=== PATIENT | female | born 2000 | race Caucasian/White ===

== ENCOUNTER 2024-08-13 19:21 | Inpatient (IN) ==
[2024-08-13] MEDS: ALBUTEROL SULFATE 2.5 MG/3 ML NEBULIZER ONE (19:35)
[2024-08-13] MEDS: IPRATROPIUM/ALBUTEROL 3 ML AMPUL.NEB NEB ONE (19:35)
[2024-08-13] MEDS: ALBUTEROL SULFATE 2.5 MG/3 ML NEBULIZER NEB ONE ×2 (19:35→21:26)
[2024-08-13] MEDS: MAGNESIUM SULFATE 2 GM/50 ML BAG IV ONE (19:43)
[2024-08-13 20:44] LABS: Basophils # (Auto) 0.05 K/mcL (0.00-0.30); Basophils % (Auto) 0.3 % (0.0-2.0); Eosinophils # (Auto) 1.73 K/mcL (0.00-0.70); Eosinophils % (Auto) 10.2 % (0.0-7.0); Hematocrit 45.1 % (34.1-44.9); Hemoglobin 14.9 g/dL (11.2-15.7); Lymphocytes # (Auto) 2.45 K/mcL (1.50-4.80); Lymphocytes % (Auto) 14.5 % (15.5-49.0); Mean Cell Volume 87.4 fL (80.0-100.0); Mean Platelet Volume 10.8 fL (8.8-12.5); Monocytes # (Auto) 0.63 K/mcL (0.10-0.90); Monocytes % (Auto) 3.7 % (1.0-12.0); Neutrophils % (Auto) 71.2 % (38.0-78.0); Platelet Count 260 K/mcL (140-440); RBC 5.16 M/mcL (3.59-5.38); Red Cell Distribution Width 12.8 % (11.5-14.5); WBC 16.9 K/mcL (4.5-11.0)
[2024-08-13 20:49] LABS: proBNP 80.5 pg/mL (<125.0)
[2024-08-13 20:52] LABS: Blood Urea Nitrogen 10 mg/dL (6-20); Calcium 9.2 mg/dL (8.6-10.4); Carbon Dioxide 24 mmol/L (22-30); Chloride 102 mmol/L (96-108); Glomerular Filtration Rate 122; Glucose 100 mg/dL (70-105); Sodium 141 mmol/L (133-145)
[2024-08-13] MEDS: LORazepam 2 MG/ML VIAL IV ONE (22:46)
[2024-08-13] MEDS ORDERED: guaiFENesin 600 MG TAB.SR.12H PO PRN (23:31)
[2024-08-13] MEDS ORDERED: SENNOSIDES 1 TABLET PO PRN (23:31)
[2024-08-13] MEDS ORDERED: LACTULOSE 20 GM/30 ML ORAL.SOL PO PRN (23:31)
[2024-08-13] MEDS ORDERED: ACETAMINOPHEN 325 MG TABLET PO PRN (23:31)
[2024-08-13] MEDS: NICOTINE 21 MG PATCH TOPICAL SCH (23:42)
[2024-08-13] MEDS: IPRATROPIUM/ALBUTEROL 3 ML AMPUL.NEB NEB SCH (23:50)
[2024-08-14] MEDS: methylPREDNISolone SOD SUCC 125 MG/2 ML VIAL IV SCH (00:02)
[2024-08-14] MEDS: NICOTINE 21 MG PATCH ONE (00:24)
[2024-08-14] MEDS: methylPREDNISolone SOD SUCC 125 MG/2 ML VIAL ONE ×2 (00:24→06:39)
[2024-08-14] MEDS: IPRATROPIUM/ALBUTEROL 3 ML AMPUL.NEB NEB ONE ×4 (00:24→06:39)
[2024-08-14] MEDS ORDERED: ALBUTEROL SULFATE 2.5 MG/3 ML NEBULIZER INH PRN (00:49)
[2024-08-14] MEDS ORDERED: ALBUTEROL SULFATE 60 PUFF INHALER INH PRN (00:49)
[2024-08-14] MEDS: ALBUTEROL SULFATE 2.5 MG/3 ML NEBULIZER NEB ONE (01:41)
[2024-08-14] MEDS: LORazepam 1 MG TABLET PO PRN (01:50)
[2024-08-14] MEDS: ONDANSETRON 4 MG/2 ML VIAL IV PRN (02:07)
[2024-08-14] MEDS: ONDANSETRON 4 MG/2 ML VIAL ONE (02:45)
[2024-08-14] MEDS: ALBUTEROL SULFATE 2.5 MG/3 ML NEBULIZER ONE ×3 (02:45→10:39)
[2024-08-14] MEDS: LORazepam 1 MG TABLET ONE (02:45)
[2024-08-14] MEDS: LORazepam 2 MG/ML VIAL ONE (04:15)
[2024-08-14] MEDS: LORazepam 2 MG/ML VIAL IV PRN (04:15)
[2024-08-14] MEDS: morphine 2 MG/ML VIAL IV PRN (04:30)
[2024-08-14] MEDS: DEXMEDETOMIDINE 400 MCG in PREMIX 1 BAG IV SCH (04:30)
[2024-08-14] MEDS: morphine 2 MG/ML VIAL ONE ×2 (04:39→06:39)
[2024-08-14] MEDS: DEXMEDETOMIDINE 100 ML IV ONE (04:39)
[2024-08-14] MEDS: PROCHLORPERAZINE 10 MG/2 ML VIAL IV ONE (05:38)
[2024-08-14] MEDS ORDERED: METOCLOPRAMIDE 10 MG/2 ML VIAL IV PRN (06:15)
[2024-08-14] MEDS ORDERED: PROCHLORPERAZINE 10 MG/2 ML VIAL IV PRN (06:15)
[2024-08-14 06:38] LABS: ALT/SGPT 21 U/L (<40); AST/SGOT 29 U/L (<32); Albumin 4.8 gm/dL (3.2-5.2); Albumin/Globulin Ratio 1.5 (1.0-2.3); Alkaline Phosphatase 73 U/L (39-117); Bilirubin,Total 0.6 mg/dL (0.1-1.0); Blood Urea Nitrogen 9 mg/dL (6-20); Calcium 9.4 mg/dL (8.6-10.4); Carbon Dioxide 24 mmol/L (22-30); Chloride 103 mmol/L (96-108); Globulin 3.2 gm/dL (2.2-3.7); Glomerular Filtration Rate 128; Glucose 214 mg/dL (70-105); Potassium 4.5 mmol/L (3.3-5.1); Sodium 139 mmol/L (133-145)
[2024-08-14] MEDS: 0.9 % SODIUM CHLORIDE 10 ML SYRINGE IV SCH (06:39)
[2024-08-14] MEDS: PROPOFOL 1,000 MG in PREMIX 1 BAG IV SCH (06:51)
[2024-08-14 07:00] LABS: Basophils # (Auto) 0.01 K/mcL (0.00-0.30); Basophils % (Auto) 0.1 % (0.0-2.0); Eosinophils # (Auto) 0 K/mcL (0.00-0.70); Eosinophils % (Auto) 0 % (0.0-7.0); Hemoglobin 15.4 g/dL (11.2-15.7); Lymphocytes # (Auto) 0.26 K/mcL (1.50-4.80); Lymphocytes % (Auto) 1.5 % (15.5-49.0); Mean Cell Volume 88.7 fL (80.0-100.0); Mean Corpuscular HGB Conc 32.8 g/dL (31.0-36.0); Mean Platelet Volume 10.5 fL (8.8-12.5); Monocytes # (Auto) 0.22 K/mcL (0.10-0.90); Monocytes % (Auto) 1.2 % (1.0-12.0); Neutrophils % (Auto) 97.1 % (38.0-78.0); Platelet Count 317 K/mcL (140-440); WBC 17.8 K/mcL (4.5-11.0)
[2024-08-14] MEDS: PROPOFOL 100 ML IV ONE (07:15)
[2024-08-14] MEDS: 0.9 % SODIUM CHLORIDE 1,000 ML IV SCH (07:23)
[2024-08-14] MEDS: 0.9 % SODIUM CHLORIDE 250 ML IV SCH (07:28)
[2024-08-14] MEDS ORDERED: PANTOPRAZOLE 40 MG TABLET PO SCH (07:30)
[2024-08-14] MEDS ORDERED: fentaNYL 2,500 MCG in 0.9 % SODIUM CHLORIDE 200 ML IV SCH (08:00)
[2024-08-14] MEDS ORDERED: NOREPINEPHRINE BITARTRATE 16 MG in 0.9 % SODIUM CHLORIDE 234 ML IV PRN (08:00)
[2024-08-14] MEDS ORDERED: DOCUSATE SODIUM 100 MG CAPSULE PO SCH (09:00)
[2024-08-14] MEDS: SODIUM BICARBONATE VIAL 150 MEQ in DEXTROSE 5% IN WATER 850 ML IV SCH (10:16)
[2024-08-14] MEDS: PANTOPRAZOLE 40 MG VIAL IV SCH (10:39)
[2024-08-14] MEDS: CHLORHEXIDINE GLUCONATE 15 ML UDC SWABMOUTH SCH (10:39)
[2024-08-14] MEDS: ENOXAPARIN 40 MG/0.4 ML SYRINGE SQ SCH (10:39)
[2024-08-14 11:00] VITALS: TEMP 97.5
[2024-08-14] MEDS ORDERED: 0.9 % SODIUM CHLORIDE 250 ML IV SCH (11:30)
[2024-08-14] MEDS ORDERED: EPINEPHrine 4 MG in 0.9 % SODIUM CHLORIDE 246 ML IV SCH (12:00)
[2024-08-14] MEDS: MIDAZOLAM HCL 50 MG in 0.9 % SODIUM CHLORIDE 90 ML IV SCH (12:08)
[2024-08-14] MEDS: MIDAZOLAM 2 MG/2 ML VIAL IV ONE (12:26)
[2024-08-14 13:09] VITALS: O2SAT 96
[2024-08-14] MEDS ORDERED: ROCURONIUM 10 MG/ML ML IV ONE (14:50)
[2024-08-14] MEDS ORDERED: ETOMIDATE 20 MG/10 ML VIAL IV ONE (14:50)
== END 2024-08-14 13:32 | disposition short-term general hospital (02) | DRG 208 ==
LOC: ED 19:21 → ICU 23:25
PROVIDERS: ADMIT Internal Medicine; ATTEND Internal Medicine

== ENCOUNTER 2024-09-27 21:20 | Inpatient (IN) ==
[2024-09-27] MEDS: methylPREDNISolone SOD SUCC 125 MG/2 ML VIAL IV ONE (21:36)
[2024-09-27] MEDS: ALBUTEROL SULFATE 2.5 MG/3 ML NEBULIZER NEB ONE ×2 (21:40→22:39)
[2024-09-27 21:46] LABS: Basophils # (Auto) 0.04 K/mcL (0.00-0.30); Basophils % (Auto) 0.2 % (0.0-2.0); Eosinophils # (Auto) 0.07 K/mcL (0.00-0.70); Eosinophils % (Auto) 0.4 % (0.0-7.0); Hematocrit 40.2 % (34.1-44.9); Hemoglobin 13.2 g/dL (11.2-15.7); Lymphocytes # (Auto) 2.93 K/mcL (1.50-4.80); Lymphocytes % (Auto) 16.2 % (15.5-49.0); Mean Cell Volume 85.9 fL (80.0-100.0); Mean Corpuscular HGB Conc 32.8 g/dL (31.0-36.0); Mean Platelet Volume 9.3 fL (8.8-12.5); Monocytes # (Auto) 1.08 K/mcL (0.10-0.90); Neutrophils % (Auto) 76.8 % (38.0-78.0); Platelet Count 324 K/mcL (140-440); RBC 4.68 M/mcL (3.59-5.38); Red Cell Distribution Width 13.4 % (11.5-14.5); WBC 18.1 K/mcL (4.5-11.0)
[2024-09-27 22:27] LABS: ABG Methemoglobin 0.3 % (0.4-1.5); Total Hemoglobin 13.8 gm/Dl (12.0-15.0); VBG Base Excess 0 (-2-3); VBG HCO3 24.2 mmol/L (24.0-28.0); VBG Oxygen Saturation 95.2 % (40.0-70.0); VBG PH 7.43 U (7.32-7.42); VBG PO2 105.1 mmHg (25.0-40.0); VBG Total CO2 25.4 mmol/L (25.0-29.0)
[2024-09-27 22:39] LABS: ALT/SGPT 18 U/L (<40); AST/SGOT 17 U/L (<32); Albumin 4.1 gm/dL (3.2-5.2); Albumin/Globulin Ratio 1.3 (1.0-2.3); Alkaline Phosphatase 86 U/L (39-117); Bilirubin,Total 0.2 mg/dL (0.1-1.0); Blood Urea Nitrogen 12 mg/dL (6-20); Calcium 9.2 mg/dL (8.6-10.4); Carbon Dioxide 28 mmol/L (22-30); Chloride 102 mmol/L (96-108); Globulin 3.1 gm/dL (2.2-3.7); Glomerular Filtration Rate 128; Glucose 94 mg/dL (70-105); Potassium 3.2 mmol/L (3.3-5.1); Sodium 142 mmol/L (133-145)
[2024-09-28] MEDS: ALBUTEROL SULFATE 2.5 MG/3 ML NEBULIZER NEB PRN
[2024-09-28] MEDS: RACEPINEPHRINE 0.5 ML AMPUL.NEB NEB ONE (02:50)
[2024-09-28] MEDS: MAGNESIUM SULFATE 2 GM/50 ML BAG IV ONE ×2 (02:52→03:20)
[2024-09-28] MEDS: methylPREDNISolone SOD SUCC 125 MG/2 ML VIAL IV SCH ×2 (03:50→15:00)
[2024-09-28] MEDS: methylPREDNISolone SOD SUCC 125 MG/2 ML VIAL IV ONE (09:52)
[2024-09-28] MEDS ORDERED: ACETAMINOPHEN 325 MG TABLET PO PRN (11:03)
[2024-09-28] MEDS ORDERED: SENNOSIDES 1 TABLET PO PRN (11:03)
[2024-09-28] MEDS ORDERED: POTASSIUM CHLORIDE 20 MEQ TABLET PO PRN ×2 (11:03)
[2024-09-28] MEDS ORDERED: ONDANSETRON 4 MG/2 ML VIAL IV PRN (11:03)
[2024-09-28] MEDS ORDERED: MAGNESIUM SULFATE 2 GM/50 ML BAG IV PRN (11:03)
[2024-09-28] MEDS ORDERED: POTASSIUM CHLORIDE 40 MEQ in DEXTROSE 5% IN WATER 500 ML IV PRN (11:03)
[2024-09-28] MEDS ORDERED: METOCLOPRAMIDE 10 MG/2 ML VIAL IV PRN (11:03)
[2024-09-28] MEDS ORDERED: POLYETHYLENE GLYCOL 3350 17 GM PACKET PO PRN (11:03)
[2024-09-28] MEDS: IPRATROPIUM/ALBUTEROL 3 ML AMPUL.NEB NEB SCH (11:26)
[2024-09-28 11:29] LABS: ALT/SGPT 18 U/L (<40); AST/SGOT 14 U/L (<32); Albumin 4.2 gm/dL (3.2-5.2); Albumin/Globulin Ratio 1.3 (1.0-2.3); Alkaline Phosphatase 85 U/L (39-117); Bilirubin,Direct < 0.2 mg/dL (0-0.3); Bilirubin,Total 0.3 mg/dL (0.1-1.0); Blood Urea Nitrogen 11 mg/dL (6-20); Calcium 9.2 mg/dL (8.6-10.4); Carbon Dioxide 27 mmol/L (22-30); Chloride 97 mmol/L (96-108); Globulin 3.2 gm/dL (2.2-3.7); Glomerular Filtration Rate 128; Glucose 257 mg/dL (70-105); Lactate Dehydrogenase 139 U/L (135-225); Phosphorous 2.5 mg/dL (2.5-4.5); Potassium 3.9 mmol/L (3.3-5.1); Sodium 138 mmol/L (133-145); Triglycerides 49 mg/dL (<150); Uric Acid 3.9 mg/dL (2.5-8.0)
[2024-09-28] MEDS: guaiFENesin 600 MG TAB.SR.12H PO SCH (16:05)
[2024-09-28] MEDS: METOPROLOL TARTRATE 5 MG/5 ML VIAL IV ONE (16:06)
[2024-09-28 18:35] LABS: Hemoglobin 12.7 g/dL (11.2-15.7); Mean Cell Volume 85.8 fL (80.0-100.0); Mean Corpuscular HGB Conc 33.4 g/dL (31.0-36.0); Mean Platelet Volume 9.6 fL (8.8-12.5); Platelet Count 382 K/mcL (140-440); RBC 4.43 M/mcL (3.59-5.38); Red Cell Distribution Width 13.4 % (11.5-14.5); WBC 29.5 K/mcL (4.5-11.0)
[2024-09-28 19:03] LABS: Band Neutrophils % 1 % (0-10); Lymphocytes % 4 % (15-49); Monocytes % (Manual) 2 % (1-12); Platelet Estimate NORMAL (Normal); RBC Morphology NORMAL (Normal); Segmented Neutrophils % 93 % (38-78)
[2024-09-28] MEDS ORDERED: DEXTROSE 31 GM ORAL.SUSP PO PRN (19:16)
[2024-09-28] MEDS ORDERED: DEXTROSE 50% 50 ML VIAL IV PRN (19:16)
[2024-09-28] MEDS ORDERED: DOCUSATE SODIUM 100 MG CAPSULE PO SCH (21:00)
[2024-09-28] MEDS: 0.9 % SODIUM CHLORIDE 10 ML SYRINGE IV SCH (21:21)
[2024-09-28] MEDS: INSULIN LISPRO 1 UNIT/0.01 ML UNIT SQ SCH (21:22)
[2024-09-28] MEDS: BUDESONIDE FORMOTEROL INH SCH (21:22)
[2024-09-29 05:49] LABS: Basophils # (Auto) 0 K/mcL (0.00-0.30); Basophils % (Auto) 0 % (0.0-2.0); Eosinophils # (Auto) 0 K/mcL (0.00-0.70); Eosinophils % (Auto) 0 % (0.0-7.0); Hematocrit 38.1 % (34.1-44.9); Hemoglobin 12.6 g/dL (11.2-15.7); Lymphocytes # (Auto) 1.34 K/mcL (1.50-4.80); Lymphocytes % (Auto) 4.7 % (15.5-49.0); Mean Cell Volume 86.8 fL (80.0-100.0); Mean Corpuscular HGB Conc 33.1 g/dL (31.0-36.0); Mean Platelet Volume 9.6 fL (8.8-12.5); Monocytes # (Auto) 1.11 K/mcL (0.10-0.90); Monocytes % (Auto) 3.9 % (1.0-12.0); Neutrophils % (Auto) 90.9 % (38.0-78.0); Platelet Count 373 K/mcL (140-440); RBC 4.39 M/mcL (3.59-5.38); Red Cell Distribution Width 13.5 % (11.5-14.5); WBC 28.5 K/mcL (4.5-11.0)
[2024-09-29] MEDS: cefTRIAXone 1 GM VIAL IV SCH (09:21)
[2024-09-29] MEDS: PANTOPRAZOLE 40 MG PACKET PO SCH (09:21)
[2024-09-29] MEDS: METOPROLOL TARTRATE 25 MG TABLET PO SCH (09:21)
[2024-09-29] MEDS: ENOXAPARIN 40 MG/0.4 ML SYRINGE SQ SCH (09:21)
[2024-09-29] MEDS: AZITHROMYCIN 500 MG in 0.9 % SODIUM CHLORIDE 250 ML IV SCH (09:37)
[2024-09-29] MEDS: IPRATROPIUM/ALBUTEROL 3 ML AMPUL.NEB NEB PRN (12:07)
[2024-09-29] MEDS: methylPREDNISolone SOD SUCC 40 MG/ML VIAL IV SCH (14:49)
[2024-09-30 06:15] LABS: Basophils # (Auto) 0.01 K/mcL (0.00-0.30); Basophils % (Auto) 0 % (0.0-2.0); Eosinophils # (Auto) 0 K/mcL (0.00-0.70); Eosinophils % (Auto) 0 % (0.0-7.0); Hematocrit 37.7 % (34.1-44.9); Hemoglobin 12.3 g/dL (11.2-15.7); Lymphocytes # (Auto) 2.26 K/mcL (1.50-4.80); Lymphocytes % (Auto) 8.3 % (15.5-49.0); Mean Cell Volume 88.1 fL (80.0-100.0); Mean Corpuscular HGB Conc 32.6 g/dL (31.0-36.0); Mean Platelet Volume 9.5 fL (8.8-12.5); Monocytes # (Auto) 1.11 K/mcL (0.10-0.90); Monocytes % (Auto) 4.1 % (1.0-12.0); Neutrophils % (Auto) 85.7 % (38.0-78.0); Platelet Count 366 K/mcL (140-440); RBC 4.28 M/mcL (3.59-5.38); Red Cell Distribution Width 13.6 % (11.5-14.5); WBC 27.2 K/mcL (4.5-11.0)
[2024-09-30 12:27] VITALS: TEMP 98.2; O2SAT 96
[2024-09-30] MEDS ORDERED: predniSONE 20 MG TABLET PO SCH (17:30)
== END 2024-09-30 12:38 | disposition home or self-care (01) | DRG 202 ==
LOC: ED 21:20 → ICU 09-28 10:53
PROVIDERS: ADMIT Internal Medicine; ATTEND Internal Medicine